=== PATIENT | female | born 1945 | race African-American/Black ===

== ENCOUNTER 2017-03-13 07:53 | Emergency (ER) | payer MEDICARE, OTHER ==
[~2017-03-13] VITALS: Ht 170.2 cm; Wt 90.0 kg
[~2017-03-13 07:53] MED LIST: LEVO100T9 PO; SIMV40TA5 PO; ZOLP10TA2 PO
[2017-03-13 08:46] LABS: CLARITY URINE CLEAR (CLEAR); COLOR URINE YELLOW (YELLOW); KETONES URINE NEGATIVE (NEGATIVE); LEUKOCYTE ESTERASE URINE 2+ (NEGATIVE); NITRITE URINE NEGATIVE (NEGATIVE); OCCULT BLOOD URINE NEGATIVE (NEGATIVE); PROTEIN URINE NEGATIVE (NEGATIVE); SPECIFIC GRAVITY URINE 1.015 (1.005-1.030); UROBILINOGEN URINE 0.2 E.U./dL (0.2-1.0)
[2017-03-13 09:15] LABS: BASOPHILS % 0.1 % (0.0-2.0); EOSINOPHILS % 2.3 % (0.0-5.0); HEMATOCRIT. 39.7 % (36.0-48.0); HEMOGLOBIN. 13.2 g/dL (12.0-16.0); LYMPHOCYTES % 51.6 % (20.0-50.0); MEAN CORPUSCULAR HEMOGLOBIN 29.8 pg (28.0-32.0); MEAN CORPUSCULAR VOLUME 89.8 fL (81.0-99.0); MONOCYTES % 7.8 % (2.0-8.0); NEUTROPHILS % 38.2 % (40.0-76.0); PLATELET 441 x1000/uL (130-400); RED BLOOD CELL COUNT 4.42 mill/uL (4.2-5.4); RED CELL DISTRIBUTION WIDTH 13.3 % (11.6-14.6)
[2017-03-13 09:22] LABS: PROTHROMBIN TIME 10.3 sec (9.4-11.6)
[2017-03-13 09:29] LABS: CARBON DIOXIDE 27 mEq/L (21-32); CHLORIDE 104 mEq/L (98-107)
[2017-03-13 09:47] VITALS: BP 157/113
== END 2017-03-13 10:18 | disposition home or self-care (01) ==
LOC: ER 07:53
DX: R07.89 Other chest pain (principal); N39.0 Urinary tract infection, site not specified; E05.90 Thyrotoxicosis, unspecified without thyrotoxic crisis or storm
CPT/HCPCS: 36415; 74176; 80053; 81001; 85025; 85610; 93005; 99285

== ENCOUNTER 2018-02-12 00:17 | Inpatient (IN) | payer MEDICARE, OTHER ==
[~2018-02-12] VITALS: Ht 162.6 cm; Wt 94.3 kg
[2018-02-12] MEDS ORDERED: ONDANSETRON HCL 4MG/2ML INJ IV STA (02:39)
[2018-02-12 03:03] LABS: CHLORIDE 103 mEq/L (98-107)
[2018-02-12 03:07] LABS: BASOPHILS % 0.3 % (0.0-2.0); EOSINOPHILS % 1.6 % (0.0-5.0); HEMATOCRIT. 39.3 % (36.0-48.0); HEMOGLOBIN. 13.5 g/dL (12.0-16.0); LYMPHOCYTES % 44.9 % (20.0-50.0); MEAN CORPUSCULAR VOLUME 90.2 fL (81.0-99.0); MEAN PLATELET VOLUME 6.7 fl (7.4-10.4); MONOCYTES % 8.2 % (2.0-8.0); PLATELET 433 x1000/uL (130-400); RED BLOOD CELL COUNT 4.36 mill/uL (4.2-5.4); RED CELL DISTRIBUTION WIDTH 13.1 % (11.6-14.6)
[2018-02-12 03:09] LABS: PARTIAL THROMBOPLASTIN TIME 25.6 sec (23.4-31.0); PROTHROMBIN TIME 10.4 sec (9.1-11.1)
[2018-02-12 05:22] LABS: CLARITY URINE CLEAR (CLEAR); COLOR URINE YELLOW (YELLOW); KETONES URINE NEGATIVE (NEGATIVE); LEUKOCYTE ESTERASE URINE TRACE (NEGATIVE); NITRITE URINE NEGATIVE (NEGATIVE); OCCULT BLOOD URINE NEGATIVE (NEGATIVE); PROTEIN URINE NEGATIVE (NEGATIVE); SPECIFIC GRAVITY URINE 1.011 (1.005-1.030); UROBILINOGEN URINE 0.2 E.U./dL (0.2-1.0)
[2018-02-12] MEDS ORDERED: ASPIRIN 325MG EC TABLET PO SCH (05:51)
[2018-02-12] MEDS ORDERED: MAGNESIUM/ALUMINUM HYDROXIDE/SIMETHICONE 30ML UDC PO PRN (07:15)
[2018-02-12] MEDS ORDERED: DOCUSATE SODIUM 100MG CAPSULE PO PRN (07:15)
[2018-02-12] MEDS ORDERED: ACETAMINOPHEN 325MG TABLET PO PRN (07:15)
[2018-02-12] MEDS ORDERED: CLONIDINE 0.1MG TABLET PO PRN (07:15)
[2018-02-12] MEDS ORDERED: ONDANSETRON HCL 4MG/2ML INJ IV PRN (07:15)
[2018-02-12] MEDS ORDERED: SODIUM CHLORIDE 0.45% 1,000 ML IV SCH (08:30)
[2018-02-12 09:00] VITALS: BP 161/92
[2018-02-12] MEDS: LEVOTHYROXINE SODIUM 100MCG TABLET PO SCH (10:00)
[2018-02-12 10:13] VITALS: BP 161/92
[2018-02-12 12:00] VITALS: BP_SYST 144; BP_SYST 147; BP_SYST 155; BP_DIAS 78; BP_DIAS 90; BP_DIAS 98
[2018-02-12] MEDS ORDERED: MECLIZINE 25MG TABLET PO PRN (13:15)
[2018-02-12] MEDS ORDERED: HYDROCODONE/ACETAMINOPHEN 5/325MG TABLET PO PRN (13:15)
[2018-02-12 16:00] VITALS: BP 132/70
[2018-02-12] MEDS: AMLODIPINE 5MG TABLET PO SCH (17:21)
[2018-02-12] MEDS: LEVOFLOXACIN 500MG TABLET PO SCH (17:21)
[2018-02-12 20:00] VITALS: BP 130/79
[2018-02-12 20:50] LABS: T4 FREE 0.98 ng/dL (0.76-1.46)
[2018-02-12] MEDS ORDERED: ATORVASTATIN CALCIUM 40MG TABLET PO SCH (21:00)
[2018-02-12 23:26] LABS: *AMPHETAMINES SCREEN URINE NEGATIVE (NEGATIVE); *BARBITURATES SCREEN URINE NEGATIVE (NEGATIVE); *BENZODIAZEPINES SCREEN URINE NEGATIVE (NEGATIVE); *COCAINE SCREEN URINE NEGATIVE (NEGATIVE); CANNABINOID URINE SCREEN NEGATIVE (NEGATIVE); METHADONE URINE SCREEN NEGATIVE (NEGATIVE); PHENCYCLIDINE URINE SCREEN NEGATIVE (NEGATIVE)
[2018-02-12 23:27] LABS: OPIATES URINE SCREEN NEGATIVE (NEGATIVE)
[2018-02-13] VITALS: BP 143/86
[2018-02-13 04:00] VITALS: BP 132/81
[2018-02-13 07:21] LABS: BASOPHILS % 0.6 % (0.0-2.0); EOSINOPHILS % 2.8 % (0.0-5.0); HEMOGLOBIN. 13.7 g/dL (12.0-16.0); LYMPHOCYTES % 45.6 % (20.0-50.0); MEAN CORPUSCULAR HEMOGLOBIN 31.3 pg (28.0-32.0); MEAN PLATELET VOLUME 6.7 fl (7.4-10.4); MONOCYTES % 8.3 % (2.0-8.0); NEUTROPHILS % 42.7 % (40.0-76.0); PLATELET 431 x1000/uL (130-400); RED BLOOD CELL COUNT 4.39 mill/uL (4.2-5.4); RED CELL DISTRIBUTION WIDTH 13.4 % (11.6-14.6)
[2018-02-13] MEDS ORDERED: ASPI-1159 PO (07:33)
[2018-02-13 08:00] VITALS: BP 113/77
[2018-02-13] MEDS: AMLODIPINE 5MG TABLET PO SCH (08:07)
[2018-02-13] MEDS: LEVOTHYROXINE SODIUM 100MCG TABLET PO SCH (08:07)
[2018-02-13 08:28] LABS: CHLORIDE 104 mEq/L (98-107)
[2018-02-13 08:38] LABS: LDL CHOLESTEROL 60 mg/dL (5-100)
[2018-02-13 08:41] LABS: HDL CHOLESTEROL 50 mg/dL (40-59)
[2018-02-13 12:00] VITALS: BP 155/74
[2018-02-13] MEDS: LEVOFLOXACIN 500MG TABLET PO SCH (13:35)
[2018-02-13 14:25] VITALS: BP 155/74
== END 2018-02-13 14:50 | disposition home or self-care (01) | DRG 73 ==
LOC: ER 00:17 → 7WST 00:50 → SUPCPDRO 07:01 → ENRESERV 07:45
PROVIDERS: ADMIT Internal Medicine; ATTEND Internal Medicine
DX: G90.8 Other disorders of autonomic nervous system (principal); I50.33 Acute on chronic diastolic (congestive) heart failure; N39.0 Urinary tract infection, site not specified; D72.829 Elevated white blood cell count, unspecified; E66.9 Obesity, unspecified; E78.00 Pure hypercholesterolemia, unspecified; E78.5 Hyperlipidemia, unspecified; M19.90 Unspecified osteoarthritis, unspecified site; E89.0 Postprocedural hypothyroidism; I11.0 Hypertensive heart disease with heart failure; R26.9 Unspecified abnormalities of gait and mobility; H81.10 Benign paroxysmal vertigo, unspecified ear; J38.00 Paralysis of vocal cords and larynx, unspecified; Z79.899 Other long term (current) drug therapy; Z87.440 Personal history of urinary (tract) infections; Z68.35 Body mass index [BMI] 35.0-35.9, adult
CPT/HCPCS: 36415; 71045; 80061; 80305; 82533; 84439; 84443; 84484; 93005; 93306; 93880; 93970; 96374; 97162; 99285; J2405

== ENCOUNTER 2024-02-11 11:37 | Emergency (ER) | payer MEDICARE, OTHER ==
[~2024-02-11] VITALS: Ht 162.6 cm; Wt 85.0 kg
[~2024-02-11 11:37] MED LIST changes: +ASPI-1497 PO; +SIMV-46 PO; -SIMV40TA5 PO
[2024-02-11 11:39] VITALS: O2SAT 97
[2024-02-11] MEDS: IBUPROFEN 600MG TABLET PO ONE (12:46)
[2024-02-11] MEDS: MECLIZINE 25MG TABLET PO ONE (12:46)
[2024-02-11] MEDS: ACETAMINOPHEN 325MG TABLET PO ONE (12:47)
[2024-02-11 13:00] LABS: CHLORIDE 103 mEq/L (98-107); POTASSIUM 3.7 mEq/L (3.5-5.1); SODIUM 135 mEq/L (136-145)
[2024-02-11 13:01] LABS: CALCIUM 10.4 mg/dL (8.7-10.4); CARBON DIOXIDE 25 mEq/L (21-32)
[2024-02-11 13:06] LABS: GLUCOSE 109 mg/dL (70-105); UREA NITROGEN BLOOD 10 mg/dL (9-23)
[2024-02-11 13:08] LABS: BASOPHILS % 0.4 % (0.0-2.0); EOSINOPHILS % 0.2 % (0.0-5.0); HEMATOCRIT. 39.4 % (36.0-48.0); HEMOGLOBIN. 13.3 g/dL (12.0-16.0); MEAN CORPUSCULAR HEMOGLOBIN 31.1 pg (28.0-32.0); MEAN CORPUSCULAR HGB CONC 33.7 g/dL (31.0-37.0); MEAN CORPUSCULAR VOLUME 92.3 fL (81.0-99.0); MONOCYTES % 7.9 % (2.0-8.0); NEUTROPHILS % 78.5 % (40.0-76.0); PLATELET 414 x1000/uL (130-400); RED BLOOD CELL COUNT 4.27 mill/uL (4.2-5.4)
[2024-02-11 13:15] LABS: TROPONIN I HIGH SENSITIVITY < 4 ng/L (3.0-34)
[2024-02-11 14:15] LABS: CLARITY URINE CLEAR (CLEAR); COLOR URINE YELLOW (YELLOW); GLUCOSE URINE NEGATIVE (NEGATIVE); KETONES URINE NEGATIVE (NEGATIVE); LEUKOCYTE ESTERASE URINE NEGATIVE (NEGATIVE); NITRITE URINE NEGATIVE (NEGATIVE); OCCULT BLOOD URINE NEGATIVE (NEGATIVE); PH URINE 7.5 (4.5-8.0); PROTEIN URINE NEGATIVE (NEGATIVE); SPECIFIC GRAVITY URINE 1.005 (1.005-1.030); UROBILINOGEN URINE 0.2 E.U./dL (0.2-1.0)
[2024-02-11] MEDS: SODIUM CHLORIDE 0.9% 500 ML IV ONE (15:28)
[2024-02-11 16:17] VITALS: BP 140/80; PULSE 83; RESP 18; TEMP 36.61404; O2SAT 98
== END 2024-02-11 16:18 | disposition home or self-care (01) ==
LOC: ER 11:37
DX: T88.1XXA Other complications following immunization, not elsewhere classified, initial encounter (principal); R51.9 Headache, unspecified; E78.00 Pure hypercholesterolemia, unspecified; I10 Essential (primary) hypertension; Z79.890 Hormone replacement therapy; Z86.73 Personal history of transient ischemic attack (TIA), and cerebral infarction without residual deficits; Z98.890 Other specified postprocedural states; X58.XXXA Exposure to other specified factors, initial encounter
CPT/HCPCS: 99284; 96360; 70450; 71045; 80048; 81003; 85025; 84484; 36415; 93005; J8597

== ENCOUNTER 2024-12-15 07:58 | Emergency (ER) | payer MEDICARE ==
[~2024-12-15] VITALS: Ht 165.1 cm; Wt 91.0 kg
[2024-12-15 07:59] VITALS: O2SAT 98
[2024-12-15] MEDS: LORATADINE 10MG TABLET PO SCH (08:30)
[2024-12-15] MEDS ORDERED: CEPH500C2 MT (10:02)
[2024-12-15 10:28] VITALS: BP 136/76; PULSE 87; RESP 16; TEMP 36.4; O2SAT 98
== END 2024-12-15 10:28 | disposition home or self-care (01) ==
LOC: ER 07:58
DX: S60.562A Insect bite (nonvenomous) of left hand, initial encounter (principal); I10 Essential (primary) hypertension; E78.00 Pure hypercholesterolemia, unspecified; Z79.890 Hormone replacement therapy; Z98.890 Other specified postprocedural states; W57.XXXA Bitten or stung by nonvenomous insect and other nonvenomous arthropods, initial encounter; Y93.89 Activity, other specified; Y92.89 Other specified places as the place of occurrence of the external cause; Y99.8 Other external cause status
CPT/HCPCS: 73130; 99283; A4606

== ENCOUNTER 2025-02-17 16:34 | Inpatient (IN) | payer MEDICARE ==
[~2025-02-17] VITALS: Ht 162.6 cm; Wt 85.3 kg
[~2025-02-17 16:34] MED LIST changes: +CEPH500C2 MT
[2025-02-17 16:35] VITALS: O2SAT 97
[2025-02-17] MEDS: ACETAMINOPHEN 500MG TABLET PO ONE (17:23)
[2025-02-17 17:43] LABS: BASOPHILS % 1.2 % (0.0-2.0); EOSINOPHILS % 2.1 % (0.0-5.0); HEMATOCRIT. 39.2 % (36.0-48.0); HEMOGLOBIN. 13.0 g/dL (12.0-16.0); LYMPHOCYTES % 45.1 % (20.0-50.0); MEAN PLATELET VOLUME 6.8 fl (7.4-10.4); MONOCYTES % 9.1 % (2.0-8.0); NEUTROPHILS % 42.5 % (40.0-76.0); PLATELET 390 x1000/uL (130-400); RED BLOOD CELL COUNT 4.27 mill/uL (4.2-5.4); RED CELL DISTRIBUTION WIDTH 13.5 % (11.6-14.6)
[2025-02-17 18:00] LABS: UREA NITROGEN BLOOD 11 mg/dL (9-23)
[2025-02-17 18:01] LABS: CREATININE 0.9 mg/dL (0.6-1.0)
[2025-02-17 18:02] LABS: PROTEIN TOTAL 7.7 g/dL (6.0-8.3)
[2025-02-17 18:03] LABS: ASPARTATE AMINOTRANSFERASE 19 IU/L (<34); BILIRUBIN DIRECT 0.1 mg/dL (<=3.0)
[2025-02-17 18:04] LABS: BILIRUBIN TOTAL 0.5 mg/dL (0.1-1.0)
[2025-02-17 18:57] LABS: CLARITY URINE CLEAR (CLEAR); COLOR URINE YELLOW (YELLOW); GLUCOSE URINE NEGATIVE (NEGATIVE); KETONES URINE NEGATIVE (NEGATIVE); LEUKOCYTE ESTERASE URINE NEGATIVE (NEGATIVE); NITRITE URINE NEGATIVE (NEGATIVE); OCCULT BLOOD URINE NEGATIVE (NEGATIVE); PH URINE 7.5 (4.5-8.0); PROTEIN URINE NEGATIVE (NEGATIVE); SPECIFIC GRAVITY URINE 1.005 (1.005-1.030); UROBILINOGEN URINE 0.2 E.U./dL (0.2-1.0)
[2025-02-17] MEDS: TRAMADOL 50MG TABLET PO ONE (20:47)
[2025-02-17 22:06] VITALS: BP 166/96; PULSE 89; RESP 18; TEMP 36.5; O2SAT 97
[2025-02-17] MEDS ORDERED: ONDANSETRON HCL 4MG/2ML INJ IV PRN (22:45)
[2025-02-17] MEDS ORDERED: MAGNESIUM/ALUMINUM HYDROXIDE/SIMETHICONE 30ML UDC PO PRN (22:45)
[2025-02-17] MEDS ORDERED: HYDROCODONE/ACETAMINOPHEN 5/325MG TABLET PO PRN (22:45)
[2025-02-17] MEDS ORDERED: MORPHINE SULFATE 2 MG/ML INJ (NOT FOR IM USE) IV PRN (22:45)
[2025-02-17] MEDS ORDERED: ZOLPIDEM TARTRATE 5MG TABLET PO PRN (22:45)
[2025-02-17 22:50] VITALS: BP 166/96; PULSE 89; RESP 18; TEMP 36.5292
[2025-02-17] MEDS ORDERED: IOHEXOL-300 100 ML BOTTLE ONE (23:32)
[2025-02-17] MEDS: CLONIDINE 0.1MG TABLET PO PRN (23:57)
[2025-02-18] VITALS: BP 117/73; PULSE 89; RESP 17; TEMP 36.6; O2SAT 98
[2025-02-18] MEDS ORDERED: LEVO75TA7 PO (01:48)
[2025-02-18] MEDS ORDERED: AMLO5TAB88 PO (01:48)
[2025-02-18] MEDS ORDERED: ROSU40TA PO (01:48)
[2025-02-18] MEDS: ACETAMINOPHEN 325MG TABLET PO PRN (03:51)
[2025-02-18 04:00] VITALS: BP 104/68; PULSE 66; RESP 18; TEMP 36.4; O2SAT 97
[2025-02-18 07:02] LABS: BASOPHILS % 0.9 % (0.0-2.0); EOSINOPHILS % 1.4 % (0.0-5.0); HEMATOCRIT. 38.6 % (36.0-48.0); HEMOGLOBIN. 13.0 g/dL (12.0-16.0); LYMPHOCYTES % 27.6 % (20.0-50.0); MEAN PLATELET VOLUME 7.4 fl (7.4-10.4); MONOCYTES % 8.9 % (2.0-8.0); NEUTROPHILS % 61.2 % (40.0-76.0); PLATELET 388 x1000/uL (130-400); RED BLOOD CELL COUNT 4.22 mill/uL (4.2-5.4); RED CELL DISTRIBUTION WIDTH 13.2 % (11.6-14.6)
[2025-02-18 07:09] LABS: CREATININE 1.2 mg/dL (0.6-1.0); UREA NITROGEN BLOOD 12.0 mg/dL (9-23)
[2025-02-18 08:00] VITALS: BP 108/64; PULSE 74; RESP 17; TEMP 36.3; O2SAT 95
[2025-02-18] MEDS: LEVOTHYROXINE SODIUM 100MCG TABLET PO SCH (09:00)
[2025-02-18] MEDS: PANTOPRAZOLE SODIUM 40 MG/VIAL IV SCH (09:57)
[2025-02-18] MEDS: ASPIRIN 81MG EC TABLET PO SCH (09:57)
[2025-02-18] MEDS: ENOXAPARIN 40MG/0.4ML SYR SUBCUT SCH (10:14)
[2025-02-18 10:27] LABS: *AMPHETAMINES SCREEN URINE PRESUMPTIVE POSITIVE (NEGATIVE); *BARBITURATES SCREEN URINE NEGATIVE (NEGATIVE); *BENZODIAZEPINES SCREEN URINE NEGATIVE (NEGATIVE); *COCAINE SCREEN URINE NEGATIVE (NEGATIVE); CANNABINOID URINE SCREEN PRESUMPTIVE POSITIVE (NEGATIVE); ECSTASY MDMA SCREEN URINE NEGATIVE (NEGATIVE); METHADONE URINE SCREEN NEGATIVE (NEGATIVE); OPIATES URINE SCREEN NEGATIVE (NEGATIVE); PHENCYCLIDINE URINE SCREEN NEGATIVE (NEGATIVE)
[2025-02-18 12:00] VITALS: BP 102/60; PULSE 69; RESP 16; TEMP 36.4; O2SAT 96
[2025-02-18 16:00] VITALS: BP 114/75; PULSE 77; RESP 17; TEMP 36.3; O2SAT 96
[2025-02-18 20:00] VITALS: BP 117/69; PULSE 66; RESP 18; TEMP 36.3; O2SAT 99
[2025-02-18] MEDS: ATORVASTATIN CALCIUM 20MG TABLET PO SCH (21:48)
[2025-02-19] VITALS: BP 110/66; PULSE 69; RESP 17; TEMP 36.3; O2SAT 100
[2025-02-19 04:00] VITALS: BP 159/88; PULSE 75; RESP 20; TEMP 36.4; O2SAT 99
[2025-02-19 05:30] LABS: CLARITY URINE CLEAR (CLEAR); COLOR URINE YELLOW (YELLOW); GLUCOSE URINE NEGATIVE (NEGATIVE); KETONES URINE NEGATIVE (NEGATIVE); LEUKOCYTE ESTERASE URINE 1+ (NEGATIVE); NITRITE URINE NEGATIVE (NEGATIVE); OCCULT BLOOD URINE NEGATIVE (NEGATIVE); PH URINE 5.5 (4.5-8.0); PROTEIN URINE NEGATIVE (NEGATIVE); SPECIFIC GRAVITY URINE 1.013 (1.005-1.030); UROBILINOGEN URINE 0.2 E.U./dL (0.2-1.0)
[2025-02-19 06:26] LABS: SQUAMOUS EPITHELIAL CELL URINE FEW /lpf (RARE/1+)
[2025-02-19 06:27] LABS: RBC URINE 0-2 /hpf (0-2)
[2025-02-19 06:31] LABS: BASOPHILS % 1.3 % (0.0-2.0); EOSINOPHILS % 3.6 % (0.0-5.0); HEMATOCRIT. 37.8 % (36.0-48.0); HEMOGLOBIN. 12.6 g/dL (12.0-16.0); LYMPHOCYTES % 47.8 % (20.0-50.0); MEAN PLATELET VOLUME 7.5 fl (7.4-10.4); MONOCYTES % 9.5 % (2.0-8.0); NEUTROPHILS % 37.8 % (40.0-76.0); PLATELET 373 x1000/uL (130-400); RED BLOOD CELL COUNT 4.12 mill/uL (4.2-5.4); RED CELL DISTRIBUTION WIDTH 13.2 % (11.6-14.6)
[2025-02-19 06:32] LABS: BACTERIA URINE 1+
[2025-02-19 06:33] LABS: CREATININE 1.1 mg/dL (0.6-1.0); UREA NITROGEN BLOOD 17.0 mg/dL (9-23)
[2025-02-19 08:00] VITALS: BP 121/71; PULSE 67; RESP 18; TEMP 36; O2SAT 95
[2025-02-19] MEDS: LEVOTHYROXINE SODIUM 100MCG TABLET PO SCH (09:05)
[2025-02-19] MEDS: AMLODIPINE 5MG TABLET PO SCH (09:15)
[2025-02-19 12:00] VITALS: BP 136/76; PULSE 66; RESP 18; TEMP 37.1; O2SAT 95
[2025-02-19 13:30] LABS: LDL CHOLESTEROL 77 mg/dL (5-100); PROTEIN TOTAL 7.2 g/dL (6.0-8.3); TRIGLYCERIDE 143 mg/dL (0-150)
[2025-02-19 13:31] LABS: ASPARTATE AMINOTRANSFERASE 22 IU/L (<34); BILIRUBIN DIRECT 0.2 mg/dL (<=3.0)
[2025-02-19 13:32] LABS: BILIRUBIN TOTAL 0.7 mg/dL (0.1-1.0)
[2025-02-19 14:07] LABS: HEPATITIS A AB IGM NEGATIVE (Negative)
[2025-02-19 14:08] LABS: HEPATITIS B CORE AB IGM NEGATIVE (Negative); HEPATITIS C AB NON REACTIVE (Neg) (Negative)
[2025-02-19 14:58] LABS: *AMPHETAMINES SCREEN URINE NEGATIVE (NEGATIVE); *BARBITURATES SCREEN URINE NEGATIVE (NEGATIVE); *BENZODIAZEPINES SCREEN URINE NEGATIVE (NEGATIVE)
[2025-02-19 14:59] LABS: *COCAINE SCREEN URINE NEGATIVE (NEGATIVE); CANNABINOID URINE SCREEN NEGATIVE (NEGATIVE); ECSTASY MDMA SCREEN URINE NEGATIVE (NEGATIVE); METHADONE URINE SCREEN NEGATIVE (NEGATIVE); OPIATES URINE SCREEN NEGATIVE (NEGATIVE); PHENCYCLIDINE URINE SCREEN NEGATIVE (NEGATIVE)
[2025-02-19 16:00] VITALS: BP 118/68; PULSE 64; RESP 20; TEMP 36.1; O2SAT 95
[2025-02-19] MEDS: CEFTRIAXONE 1GM/50ML 50 ML IV SCH (16:07)
[2025-02-19 20:00] VITALS: BP 117/66; PULSE 81; RESP 18; TEMP 36.7; O2SAT 99
[2025-02-20] VITALS: BP 119/69; PULSE 76; RESP 18; TEMP 36.5; O2SAT 98
[2025-02-20 04:00] VITALS: BP 124/69; PULSE 74; RESP 18; TEMP 36.4; O2SAT 99
[2025-02-20] MEDS ORDERED: LEVOTHYROXINE SODIUM 75MCG TABLET PO SCH (07:00)
[2025-02-20 08:00] VITALS: BP 142/82; PULSE 78; RESP 18; TEMP 37.2; O2SAT 97
[2025-02-20 08:02] LABS: CREATININE 1.0 mg/dL (0.6-1.0)
[2025-02-20 08:03] LABS: UREA NITROGEN BLOOD 15 mg/dL (9-23)
[2025-02-20 08:24] LABS: BASOPHILS % 0.6 % (0.0-2.0); EOSINOPHILS % 3.0 % (0.0-5.0); HEMATOCRIT. 39.1 % (36.0-48.0); HEMOGLOBIN. 13.0 g/dL (12.0-16.0); LYMPHOCYTES % 42.0 % (20.0-50.0); MEAN PLATELET VOLUME 7.4 fl (7.4-10.4); MONOCYTES % 9.5 % (2.0-8.0); NEUTROPHILS % 44.9 % (40.0-76.0); PLATELET 398 x1000/uL (130-400); RED BLOOD CELL COUNT 4.24 mill/uL (4.2-5.4); RED CELL DISTRIBUTION WIDTH 13.1 % (11.6-14.6)
[2025-02-20] MEDS: LEVOTHYROXINE SODIUM 75MCG TABLET PO SCH (09:06)
[2025-02-20 12:00] VITALS: BP 150/80; PULSE 79; RESP 16; TEMP 36.6; O2SAT 98
[2025-02-20 12:01] VITALS: BP 134/78; PULSE 71; RESP 16; TEMP 98.3
== END 2025-02-20 14:51 | disposition home or self-care (01) | DRG 445 ==
LOC: ER 16:34 → 8EST 20:24 → EDBEDREQ 20:42 → EDBEDREQTM 20:42 → ENRESERV 21:29
PROVIDERS: ADMIT Internal Medicine; ATTEND Internal Medicine
DX: K80.20 Calculus of gallbladder without cholecystitis without obstruction (principal); N39.0 Urinary tract infection, site not specified; E03.9 Hypothyroidism, unspecified; I10 Essential (primary) hypertension; K76.0 Fatty (change of) liver, not elsewhere classified; E78.5 Hyperlipidemia, unspecified; K82.8 Other specified diseases of gallbladder; Z79.82 Long term (current) use of aspirin; Z87.440 Personal history of urinary (tract) infections
CPT/HCPCS: 36415; 74018; 74177; 74181; 76700; 80048; 80061; 80076; 80305; 81003; 83735; 84443; 85025; 86705; 86709; 87340; 93005; 93970; 99285; J0696; J1650; J2470; Q9967